=== PATIENT | male | born 1960 | race Caucasian/White ===

== ENCOUNTER 2018-01-07 11:20 | Inpatient (IN) ==
[2018-01-07] MEDS ORDERED: Lidocaine PF 1% Inj 5 ML Syringe INFILTRATN ONE (12:00)
[2018-01-07] MEDS ORDERED: Glycopyrrolate Inj 1 MG/5 ML Syringe IV.PUSH ONE (12:00)
[2018-01-07] MEDS ORDERED: Neostigmine Inj 5 MG/5 ML Syringe IV.PUSH ONE (12:00)
[2018-01-07] MEDS ORDERED: Chlorhexidine Gluconate 2% 1 Pack (2 Cloths) TOPICAL SCH (12:15)
[2018-01-07] MEDS ORDERED: Metoprolol Tartrate 25 MG Tablet PO SCH (12:15)
[2018-01-07 12:39] LABS: Baso % (Auto) 0.4 % (0.0-2.0); Eos # (Auto) 0.2 th/mm3 (0.0-0.4); Eos % (Auto) 2.7 % (0.0-4.0); Hematocrit 44.5 % (39.0-51.0); Lymph # (Auto) 1.3 th/mm3 (1.0-4.8); Lymph % (Auto) 16.8 % (9.0-44.0); Mean Corpuscular HGB Conc 33.7 % (32.0-36.0); Mean Corpuscular Hemoglobin 27.7 pg (27.0-34.0); Mean Corpuscular Volume 82.1 fL (80.0-100.0); Mean Platelet Volume 8.9 fL (7.0-11.0); Mono # (Auto) 0.6 th/mm3 (0.0-0.9); Mono % (Auto) 7.5 % (0.0-8.0); Neut # (Auto) 5.4 th/mm3 (1.8-7.7); Neut % (Auto) 72.6 % (16.0-70.0); Platelet Count 221 th/mm3 (150-450); Red Blood Count 5.42 mil/mm3 (4.50-5.90); Red Cell Distribution Width 14.7 % (11.6-17.2); White Blood Count 7.4 th/mm3 (4.0-11.0)
[2018-01-07] MEDS ORDERED: Sodium Chlor 0.9% Inj 500 ML IV.SIG SCH (13:00)
--- NOTE | 2018-01-07 13:48 | P.HPUP ---
The Pre-Admit History and Physical Examination regarding the above named patient was reviewed (including, but not limited to, vital signs, heart, lungs, co-morbid conditions), and upon re-examination it is noted that: the patient's condition has not significantly changed since the last examination.
[2018-01-07] MEDS ORDERED: Ketamine Inj 50 MG/5 ML Syringe IV.PUSH ONE (14:06)
[2018-01-07] MEDS ORDERED: HYDROmorphone PF Inj 2 MG/ML Vial ONE (14:06)
[2018-01-07] MEDS ORDERED: Acetaminophen 325 MG Tablet PO PRN (16:10)
[2018-01-07] MEDS ORDERED: Potassium Chlor 20 mEq Premix 20 MEQ/100 ML PIGGYBACK IV.SIG PRN (16:10)
[2018-01-07] MEDS ORDERED: Ketorolac Inj 30 MG/ML (IVP) Vial IV.PUSH PRN (16:10)
[2018-01-07] MEDS ORDERED: Potassium Chlor 40 mEq Premix 40 MEQ/100 ML PIGGYBACK IV.SIG PRN (16:10)
[2018-01-07] MEDS ORDERED: fentaNYL Citrate Inj 100 MCG/2 ML Ampul ONE (16:16)
[2018-01-07] MEDS ORDERED: *morphine SULFATE 10 MG/ML PERIprocedure ONLY ONE ×2 (16:29→17:12)
[2018-01-07] MEDS: KCL 20 mEq/D5W/NaCl 0.9% Inj 1,000 ML IV.CONT SCH (16:33)
[2018-01-07] MEDS ORDERED: Naloxone Inj 0.4 MG/ML Vial IV.PUSH PRN (17:07)
[2018-01-07] MEDS: Morphine Inj 30 MG/30 ML PCA.VIAL PCA PRN (17:39)
--- NOTE | 2018-01-07 18:29 | ECG ---
Date Performed: 01/07/2018 Time Performed: 11:46:11 PTAGE: 57 years EKG: Sinus rhythm NORMAL ECG Compared to PREVIOUS TRACING , sinus rate is faster. PREVIOUS TRACIN03/07/2016 10.20 DOCTOR: Clayton Reid Interpretating Date/Time 01/07/2018 18:28:10
[2018-01-07] MEDS: Dextrose 5%/NaCl 0.9% Inj 1,000 ML IV.SIG SCH (21:04)
[2018-01-08] MEDS: KCL 20 mEq/D5W/NaCl 0.9% Inj 1,000 ML IV.CONT SCH ×3 (01:59→12:33)
[2018-01-08] MEDS: Dextrose 5%/NaCl 0.9% Inj 1,000 ML IV.SIG SCH ×3 (02:16→12:33)
[2018-01-08] MEDS: Morphine Inj 30 MG/30 ML PCA.VIAL PCA PRN ×3 (03:05→19:44)
[2018-01-08 06:21] LABS: Baso % (Auto) 0.2 % (0.0-2.0); Hematocrit 42.1 % (39.0-51.0); Hemoglobin 13.9 gm/dL (13.0-17.0); Lymph # (Auto) 0.6 th/mm3 (1.0-4.8); Lymph % (Auto) 5.5 % (9.0-44.0); Mean Corpuscular Hemoglobin 27.7 pg (27.0-34.0); Mean Corpuscular Volume 83.8 fL (80.0-100.0); Mean Platelet Volume 9.1 fL (7.0-11.0); Mono # (Auto) 0.6 th/mm3 (0.0-0.9); Mono % (Auto) 5.4 % (0.0-8.0); Neut # (Auto) 9.6 th/mm3 (1.8-7.7); Neut % (Auto) 88.9 % (16.0-70.0); Platelet Count 209 th/mm3 (150-450); Red Blood Count 5.02 mil/mm3 (4.50-5.90); Red Cell Distribution Width 14.6 % (11.6-17.2); White Blood Count 10.8 th/mm3 (4.0-11.0)
[2018-01-08 06:32] LABS: Calcium 8.2 mg/dL (8.5-10.1); Carbon Dioxide 26.1 meq/L (21.0-32.0); Potassium 4.7 meq/L (3.5-5.1)
[2018-01-08] MEDS: Pantoprazole Inj 40 MG Vial IV.PUSH SCH (09:32)
--- NOTE | 2018-01-08 17:37 | P.PNCS ---
Subjective Interval history: C/R Surg POD #1 afebrile, VSS UO good, ella dc'd Objective Objective Remarks: PE alert Abd - soft, wound dry, KEVYN min Assessment and Plan - Plan Imp: stable post-op OOB decr IVF adv diet
--- NOTE | 2018-01-08 23:13 | MP ---
cc: Jim Harmon MD, Andrew H MD DATE OF OPERATION: 01/07/2018 PREOPERATIVE DIAGNOSIS: Multiple ventral hernias. History of total colectomy and ileoanal pouch. PROCEDURE: Exploratory laparotomy with repair of multiple ventral hernias and onlay Marlex mesh. POSTOPERATIVE DIAGNOSIS: Multiple ventral hernias. History of total colectomy and ileoanal pouch. SURGEON: Jim Harmon MD DESCRIPTION OF PROCEDURE: The patient was placed in the supine position. After adequate general anesthesia, his abdomen was prepped with Betadine solution and draped in the usual sterile fashion. The previous midline incision was reopened entering a hernia sac in the upper pole incision rather readily. The hernia sac and fascia above and below the hernias were opened, noting attenuated fascia in several areas along the incision as well. All these hernia sacs were opened and the attenuated fascia were excised back to healthy tissue. Exploration of the abdomen revealed very few adhesions throughout the abdomen. His colon had been previously resected and the small bowel appeared to be pretty normal. The liver had no palpable masses. The stomach and duodenum were unremarkable. Great vessels were of normal caliber and fairly soft. First, subcutaneous plane was developed on both sides of the incision, elevating the subcu tissue off the anterior rectus fascia, going back as far as the mid axillary line on both sides to obtain mobilization for planned midline closure. After adequate mobilization, there did appear to be good fascia to enable a midline closure without tension. The midline fascia was therefore closed using a running #1 PDS suture. The fascia did come together easily without tension. The subcu tissues was irrigated copiously. Hemostasis achieved. A piece of Marlex mesh was then cut to the appropriate size and sutured over the repair with interrupted Vicryl tacks holding it down to the anterior rectus fascia. The subcu tissues were again irrigated and hemostasis achieved. Fernando-Leal drain was placed into the subcu space on both sides and brought out through stab wounds on the right and left side of the incision and secured to the skin with nylon sutures. The subcu tissues were then reapproximated in the midline, obliterating space and the skin closed with a row of surgical sara. Wound area was washed with normal saline and dried, sterile dressing of Telfa and gauze applied. The patient tolerated the procedure quite well and was brought to the recovery room in stable condition. Sponge and needle counts were correct at the end of the procedure. MD SUGEY Kirby/SA , 10:57 PM , 11:12 PM
[2018-01-09] MEDS: Dextrose 5%/NaCl 0.9% Inj 1,000 ML IV.SIG SCH ×3 (04:15→18:06)
[2018-01-09 05:26] LABS: Baso % (Auto) 0.3 % (0.0-2.0); Eos % (Auto) 0.8 % (0.0-4.0); Hematocrit 40.8 % (39.0-51.0); Hemoglobin 13.7 gm/dL (13.0-17.0); Lymph # (Auto) 0.8 th/mm3 (1.0-4.8); Lymph % (Auto) 12.5 % (9.0-44.0); Mean Corpuscular HGB Conc 33.5 % (32.0-36.0); Mean Corpuscular Hemoglobin 27.9 pg (27.0-34.0); Mean Corpuscular Volume 83.3 fL (80.0-100.0); Mean Platelet Volume 8.9 fL (7.0-11.0); Mono # (Auto) 0.5 th/mm3 (0.0-0.9); Mono % (Auto) 8.1 % (0.0-8.0); Neut # (Auto) 5.1 th/mm3 (1.8-7.7); Neut % (Auto) 78.3 % (16.0-70.0); Platelet Count 184 th/mm3 (150-450); Red Cell Distribution Width 15.1 % (11.6-17.2); White Blood Count 6.6 th/mm3 (4.0-11.0)
[2018-01-09 05:39] LABS: Calcium 8.6 mg/dL (8.5-10.1); Carbon Dioxide 28.3 meq/L (21.0-32.0); Potassium 3.8 meq/L (3.5-5.1)
[2018-01-09] MEDS: Morphine Inj 30 MG/30 ML PCA.VIAL PCA PRN (06:54)
[2018-01-09] MEDS: KCL 20 mEq/D5W/NaCl 0.9% Inj 1,000 ML IV.CONT SCH ×2 (08:06→18:17)
--- NOTE | 2018-01-09 10:39 | P.PNCS ---
Subjective Interval history: C/R Surg POD #2 afebrile, VSS UO good, jaramillo out KEVYN less Objective Objective Remarks: PE alert Abd - full, wound dry, mild tympany Assessment and Plan - Plan Imp: OOB decr IVF adv diet slowly dc plans
[2018-01-09] MEDS: Pantoprazole Inj 40 MG Vial IV.PUSH SCH (10:58)
[2018-01-10] MEDS: Dextrose 5%/NaCl 0.9% Inj 1,000 ML IV.SIG SCH ×2 (06:29→13:48)
[2018-01-10] MEDS: KCL 20 mEq/D5W/NaCl 0.9% Inj 1,000 ML IV.CONT SCH ×2 (06:30→13:49)
--- NOTE | 2018-01-10 08:05 | P.PNCS ---
Subjective Interval history: C/R Surg POD # 3 Afebrile, VSS UO good +BM Objective Result Diagrams: 01/09/18 04:46 01/09/18 04:36 Objective Remarks: PE alert Abd - soft, wound slightly red, KEVYN min Assessment and Plan - Plan Imp: OOB decr IVF adv diet slowly vanco dc plans
[2018-01-10] MEDS: Pantoprazole Inj 40 MG Vial IV.PUSH SCH (10:33)
[2018-01-10] MEDS: Vancomycin Inj 500 MG in Sodium Chlor 0.9% Inj 100 ML IV.SIG SCH ×2 (13:46→21:52)
[2018-01-11] MEDS: Dextrose 5%/NaCl 0.9% Inj 1,000 ML IV.SIG SCH ×2 (02:31→04:22)
[2018-01-11] MEDS: KCL 20 mEq/D5W/NaCl 0.9% Inj 1,000 ML IV.CONT SCH (03:15)
[2018-01-11 05:26] VITALS: PULSE 88; RESP 18
[2018-01-11] MEDS: Pantoprazole Inj 40 MG Vial IV.PUSH SCH (09:01)
[2018-01-11 09:26] VITALS: BP 136/73; TEMP 98.1; O2SAT 95
--- NOTE | 2018-02-03 06:35 | MD ---
cc: Jim Harmon MD, Andrew H MD DATE OF DISCHARGE: 01/11/2018 ADMITTING DIAGNOSES: 1. Recurrent ventral hernia. 2. History of total colectomy and ileoanal pouch. PROCEDURES: On 01/07/2018, exploratory laparotomy with repair of multiple ventral hernias and onlay Marlex mesh. DISCHARGE DIAGNOSES: 1. Recurrent ventral hernia. 2. History of total colectomy and ileoanal pouch. HISTORY OF PRESENT ILLNESS: Mr. Pabon is a 57-year-old male who had a total colectomy and ileoanal pouch many years ago. He subsequently had a perforation and ended up with an ileostomy. He had closure of his ileostomy several years ago with resultant ventral hernias. 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 He was recently seen in the office and found to have multiple ventral hernias along his previous incision. They were reducible and not really tender. 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 The patient elected to proceed with additional repair of the hernias at this time understanding that mesh would probably need to be inserted for a more durable repair. Please see the admitting history and physical for a more complete past medical and surgical history. PERTINENT PHYSICAL: A very pleasant male, in no acute distress. Abdomen was soft and flat. Obvious hernias were palpable along the midline incision. They were reducible, pretty much mildly tender, but not really indurated or thickened. 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 HOSPITAL COURSE: After admission, the patient was taken to the operating room on 01/07/2018. At which point, he underwent an exploratory laparotomy with repair of multiple ventral hernias and onlay Marlex mesh. He tolerated the surgery quite well. His bowel function was a little slow to return and he was treated with IV fluids and bowel rest. His wound also had some redness and he was treated with broad spectrum antibiotics and abdominal binder. He started having function of his pouch and was able to be weaned off his IV fluids. Pain management was controlled with oral pain medication. The patient was doing well enough to be considered ready for discharge home on 01/11/2018. DISCHARGE INSTRUCTIONS: The patient was discharged eating a regular diet. He was encouraged to ambulate daily, avoiding heavy lifting or straining. All preop medications were to be resumed. Postop pain medication was provided for his pain relief. The patient would be wearing his abdominal binder while out of bed and try to avoid coughing or sneezing without additional manual pressure along the incision. He will be seen in the office in 1 week's time for additional followup and removal of his surgical sara. Any problems prior to the office visit, he was instructed to call for more urgent attention. MD SUGEY Kirby/juan david , 09:50 PM , 09:59 PM
== END 2018-01-11 12:54 | disposition home or self-care (01) ==
LOC: HSDI 11:20 → N06 18:11
PROVIDERS: ADMIT Colon & Rectal Surgery; ATTEND Colon & Rectal Surgery
DX: Z88.6 Allergy status to analgesic agent; K43.9 Ventral hernia without obstruction or gangrene; Z90.49 Acquired absence of other specified parts of digestive tract